=== PATIENT | female | born 1970 | race Caucasian/White ===

== ENCOUNTER → 2017-07-26 | Outpatient (CLI) | payer MEDICARE, OTHER ==
--- NOTE | 2017-07-29 17:05 | WOMENS IMAGING REPORT ---
EXAM DESCRIPTION: 3D SCREENING MAMMO BILAT COMPLETED DATE/TIME: 07/26/2017 3:34 pm REASON FOR STUDY: ROUTINE SCREENING; Z12.31 Z12.31 ENCNTR SCREEN MAMMOGRAM FOR MALIGNANT NEOPLASM O F DEE DEE COMPARISON: None. TECHNIQUE: Standard craniocaudal and mediolateral oblique views of each breast recorded using digita l acquisition and breast tomosynthesis. LIMITATIONS: None. FINDINGS: No masses, calcifications or architectural distortion. No areas of suspicion. Read with the assistance of CAD. .[facility] - R2 Cenova Version 1.3 .[facility] Imaging - R2 Cenova Version 1.3 .[facility] Imaging - R2 Cenova Version 2.4 .[facility] [place] - R2 Cenova Version 2.4 .[facility] - R2 R D Engineer Version 9.2 IMPRESSION: NORMAL MAMMOGRAM. BIRADS 1. BREAST DENSITY: b. There are scattered areas of fibroglandular density. BIRAD: 1 NEGATIVE RECOMMENDATION: ROUTINE SCREENING COMMENT: The patient has been notified of the results by letter per SA requirements. Additional no tification policies are in place for contacting patient with suspicious or incomplete findings. Quality ID #[id number]: The [employer] recommends an annual screening mammogram for women aged 40 years or over. This facility utilizes a reminder system to ensure that all patients receive reminder letters, and/or direct phone calls for appointments. This includes reminders for routine scr eening mammograms, diagnostic mammograms, or other Breast Imaging Interventions when appropriate. Th is patient will be placed in the appropriate reminder system. The [employer] ([employer]) has developed recommendations for screening MRI of the breast s in certain patient populations, to be used in conjunction with mammography. Breast MRI surveillanc e may be appropriate for women with more than 20% lifetime risk of developing breast cancer as deter mined by genetic testing, significant family history of the disease, or history of mantle radiation f or Hodgkins Disease. ACR Practice Guidelines 2008. DBT Technology DBT is a type of tomographic mammography. With conventional mammography, overlapping breast tissue ma y make lesions difficult to detect, even with good compression. DBT uses an x-ray tube that rotates a round the breast, taking images at different angles. These images are then combined to create thin sl ices of the breast that the radiologist can view as a 3D reconstruction. The [employer] unit can perform full-field digital mammograms (2D imaging); or DBT (3D imaging); or both, in a combination mode that quickly performs both the mammogram and the tomosynthesis scan while the breast is still compressed. PQRS 6045F: Fluoroscopic imaging is not utilized for breast tomosynthesis. TECHNICAL DOCUMENTATION: FINDING NUMBER: (1) ASSESSMENT: (1) JOB ID: [id number] [employer]- All Rights Reserved
== END ==
LOC: WI 14:54
PROVIDERS: ATTEND Physician Assistant
DX: Z12.31 Encounter for screening mammogram for malignant neoplasm of breast (principal)
CPT/HCPCS: 77063; 77067

== ENCOUNTER → 2018-05-30 | Outpatient (CLI) | payer MEDICARE ==
--- NOTE | 2018-05-30 14:25 | RADIOLOGY REPORT (SQ) ---
EXAM DESCRIPTION: FACIAL BONES COMPLETED DATE/TIME: 05/30/2018 2:15 pm REASON FOR STUDY: UNSPECIFIED INJURY OF FACE, INITIAL ENCOUNTER M25.561 PAIN IN RIGHT KNEE S09.93XA UNSPECIFIED INJURY OF FACE, INITIAL ENCOUNTER COMPARISON: None. NUMBER OF VIEWS: Three view. TECHNIQUE: Images of the facial bones acquired. LIMITATIONS: None. FINDINGS: ORBITS: No fracture. No foreign body. SINUSES: No mucosal thickening. No air fluid levels. FACIAL BONES: No fracture. OTHER: No other significant finding. IMPRESSION: NO FOREIGN BODY OR FRACTURE OF THE FACIAL BONES. TECHNICAL DOCUMENTATION: JOB ID: [id number] [employer]- All Rights Reserved Reading location - IP/workstation name: [email or web address]
--- NOTE | 2018-05-30 14:27 | RADIOLOGY REPORT (SQ) ---
EXAM DESCRIPTION: KNEE RIGHT 3 VIEWS COMPLETED DATE/TIME: 05/30/2018 2:15 pm REASON FOR STUDY: PAIN IN RIGHT KNEE M25.561 PAIN IN RIGHT KNEE S09.93XA UNSPECIFIED INJURY OF FAC E, INITIAL ENCOUNTER COMPARISON: None. NUMBER OF VIEWS: Three-view TECHNIQUE: AP, lateral, and sunrise patella radiographic images acquired of the right knee. LIMITATIONS: None. FINDINGS: MINERALIZATION: Normal. BONES: No acute fracture or dislocation. No worrisome bone lesions. JOINT: There some minimal decrease in the lateral compartment with associated osteophytic lipping SOFT TISSUES: No soft tissue swelling. No radio-opaque foreign body. OTHER: No other significant finding. IMPRESSION: No acute fracture dislocation. Degenerative changes at the level of the lateral compart ment as noted above. Other findings as noted above TECHNICAL DOCUMENTATION: JOB ID: [id number] [employer]- All Rights Reserved Reading location - IP/workstation name: [email or web address]
== END ==
LOC: OD 13:29
PROVIDERS: ATTEND Physician Assistant
DX: M25.561 Pain in right knee (principal); S09.93XA Unspecified injury of face, initial encounter; X58.XXXA Exposure to other specified factors, initial encounter
CPT/HCPCS: 70150

== ENCOUNTER → 2018-06-14 | Outpatient (CLI) | payer MEDICARE ==
--- NOTE | 2018-06-14 12:51 | RADIOLOGY REPORT (SQ) ---
EXAM DESCRIPTION: MRI RT LOWER JOINT WITHOUT COMPLETED DATE/TIME: 06/14/2018 12:04 pm REASON FOR STUDY: INSTABILITY AND PAIN OF RIGHT KNEE M25.561 PAIN IN RIGHT KNEE COMPARISON: Plain radiographs TECHNIQUE: Rightknee images acquired and stored on PACS. Multiplanar images include fat sensitive s equences as T1, water sensitive sequences as FST2 or STIR, cartilage sensitive sequences as FSPD, and gradient echo sequences. LIMITATIONS: None. FINDINGS: JOINT AND BURSAE: Joint effusion. No popliteal cyst. BONE CORTEX AND MARROW: No alteration of signal to suggest marrow replacement. No worrisome bone lesi ons. No occult fracture. ACL: Intact. No degeneration or ganglion cyst. PCL: Intact. MCL: Intact. No periligamentous edema or fluid. LCL: Intact. No periligamentous edema or fluid. MEDIAL MENISCUS: No tears. No abnormal signal. LATERAL MENISCUS: Complex tear. Mid and anteriorly there is a bucket-handle tear flipped centrally a nd anteriorly. MEDIAL COMPARTMENT: Cartilage preserved. No bone bruises or reactive marrow edema. No osteophytes. LATERAL COMPARTMENT: Generalize cartilaginous loss with osteophytes and reactive edema. PATELLA: No cartilaginous loss. Patellofemoral osteophytes. EXTENSOR MECHANISM: Intact. Quadriceps and patella tendons normal. SOFT TISSUES: Adjacent muscles and subcutaneous tissues normal. Normal flow void in popliteal artery and vein. OTHER: No other significant finding. IMPRESSION: Complex tear of the lateral meniscus an anterior bucket-handle flipped centrally anterio rly. Associated degenerative changes lateral compartment. Joint effusion. Patellofemoral osteophytes. TECHNICAL DOCUMENTATION: JOB ID: [id number] [employer]- All Rights Reserved Reading location - IP/workstation name: [email or web address]
== END ==
LOC: RAD 11:15
PROVIDERS: ATTEND Physician Assistant
DX: M25.561 Pain in right knee (principal)

== ENCOUNTER 2019-01-12 17:37 | Emergency (ER) | payer MEDICARE ==
--- NOTE | 2019-01-12 19:00 | ER Document Report ---
Addendum entered and electronically signed by LUIS PFEIFFER MD 01/14/19 12:19: Discharge - Discharge Clinical Impression: Suicidal ideation, Marijuana use Condition: Stable Disposition: HOME, SELF-CARE Additional Instructions: You have been evaluated by both medical and behavioral health providers while in the emergency department. You have been cleared from both acute medical and psychiatric services. You reached out to your Primary Care Provider for help who then involved [facility]. You denied current suicidal ideation. Medications have been adjusted and you should continue taking the new regimen as prescribed. You should follow up with outpatient mental health provider for ongoing medication management and therapy, but at the very least your Primary Care Provider. You have been provided a list of outpatient mental health providers and the mobile crisis number. DEPRESSION: Your evaluation reveals that you have mental depression. While symptoms may be vague, they often include disturbance of sleep, fatigue, loss of appetite, and general loss of interest in life. While depression may be a side effect of drugs, or a reaction to a major change in your life, many cases have no known cause. If depression is acute, and related to a major loss in your life, you can expect it to clear completely with time. If you have been depressed a long time, are prone to repeated bouts of depression or low mood, or have been thinking of suicide, get help. Depression can be treated with anti-depressant medication and counselling. Long-term depression will often take a few weeks to clear, even with appropriate medication. Follow-up care is important. SUICIDAL IDEATION: Suicidal ideation is a common medical term for thoughts about suicide, which may be as detailed as a formulated plan, without the suicidal act itself. Although most people who undergo suicidal ideation do not commit suicide, some go on to make suicide attempts. The range of suicidal ideation varies greatly from fleeting to detailed planning, role playing, and unsuccessful attempts. While thoughts about suicide are common, most people do not carry out serious actions to commit suicide. Based upon your evaluation and discussion with you, we do not believe you are currently at risk to act upon your thoughts of suicide. You have agreed to return to the Emergency Department, at any time, if you feel inclined to act upon your suicidal thoughts. FOLLOW-UP CARE: Your medication had been adjusted and current regimen includes: Effexor 37.6MG daily for depression/increase energy/focus and Buspar 5MG twice a day for anxiety/calming effect/depression/sleep. You should take these as prescribed. You should follow up with your Primary Care Physician at the very least, have been recommended to initiate and establish services with mental health provider and have a resource list of local agencies. Coordinated with [facility] who was involved and can assist with linkage. If you experience worsening or a significant change in your symptoms, notify the physician immedi ately, utilize mobile crisis or return to the Emergency Department at any time for re-evaluation. Prescriptions: Buspirone HCl [Buspar 5 mg Tablet] 1 tab PO BID #60 tab Venlafaxine HCl ER [Effexor Xr 37.5 mg Cap.sr] 37.5 mg PO DAILY #30 cap.sr.24h Referrals: [facility] [Outside] - Follow up as needed [facility] [Outside] - Follow up as needed RAPHAEL MAYNARD PA-C [Primary Care Provider] - Follow up as needed VANE MEJIA MD [ACTIVE STAFF] - Follow up as needed Addendum entered and electronically signed by LUIS PFEIFFER MD 01/14/19 12:14: Discharge - Discharge Clinical Impression: Suicidal ideation, Marijuana use Condition: Stable Disposition: HOME, SELF-CARE Additional Instructions: You have been evaluated by both medical and behavioral health providers while in the emergency department. You have been cleared from both acute medical and psychiatric services. You reached out to your Primary Care Provider for help who then involved [facility]. You denied current suicidal ideation. Medications have been adjusted and you should continue taking the new regimen as prescribed. You should follow up with outpatient mental health provider for ongoing medication management and therapy, but at the very least your Primary Care Provider. You have been provided a list of outpatient mental health providers and the mobile crisis number. DEPRESSION: Your evaluation reveals that you have mental depression. While symptoms may be vague, they often include disturbance of sleep, fatigue, loss of appetite, and general loss of interest in life. While depression may be a side effect of drugs, or a reaction to a major change in your life, many cases have no known cause. If depression is acute, and related to a major loss in your life, you can expect it to clear completely with time. If you have been depressed a long time, are prone to repeated bouts of depression or low mood, or have been thinking of suicide, get help. Depression can be treated with anti-depressant medication and counselling. Long-term depression will often take a few weeks to clear, even with appropriate medication. Follow-up care is important. SUICIDAL IDEATION: Suicidal ideation is a common medical term for thoughts about suicide, which may be as detailed as a formulated plan, without the suicidal act itself. Although most people who undergo suicidal ideation do not commit suicide, some go on to make suicide attempts. The range of suicidal ideation varies greatly from fleeting to detailed planning, role playing, and unsuccessful attempts. While thoughts about suicide are common, most people do not carry out serious actions to commit suicide. Based upon your evaluation and discussion with you, we do not believe you are currently at risk to act upon your thoughts of suicide. You have agreed to return to the Emergency Department, at any time, if you feel inclined to act upon your suicidal thoughts. FOLLOW-UP CARE: Your medication had been adjusted and current regimen includes: Effexor 37.6MG daily for depression/increase energy/focus and Buspar 5MG twice a day for anxiety/calming effect/depression/sleep. You should take these as prescribed. You should follow up with your Primary Care Physician at the very least, have been recommended to initiate and establish services with mental health provider and have a resource list of local agencies. Coordinated with [facility] who was involved and can assist with linkage. If you experience worsening or a significant change in your symptoms, notify the physician immediately, utilize mobile crisis or return to the Emergency Department at any time for re-evaluation. Prescriptions: Buspirone HCl [Buspar 5 mg Tablet] 1 tab PO BID #60 tab Venlafaxine HCl ER [Effexor Xr 37.5 mg Cap.sr] 37.5 mg PO DAILY #30 cap.sr.24h Referrals: [facility] [Outside] - Follow up as needed [facility] [Outside] - Follow up as needed RAPHAEL MAYNARD PA-C [Primary Care Provider] - Follow up as needed Addendum entered and electronically signed by YANET COLEMAN LPC 01/14/19 11:09: Discharge - Discharge Clinical Impression: Suicidal ideation, Marijuana use Condition: Stable Disposition: HOME, SELF-CARE Additional Instructions: You have been evaluated by both medical and behavioral health providers while in the emergency department. You have been cleared from both acute medical and psychiatric services. You reached out to your Primary Care Provider for help who then involved [facility]. You denied current suicidal ideation. Medications have been adjusted and you should continue taking the new regimen as prescribed. You should follow up with outpatient mental he alth provider for ongoing medication management and therapy, but at the very least your Primary Care Provider. You have been provided a list of outpatient mental health providers and the mobile crisis number. DEPRESSION: Your evaluation reveals that you have mental depression. While symptoms may be vague, they often include disturbance of sleep, fatigue, loss of appetite, and general loss of interest in life. While depression may be a side effect of drugs, or a reaction to a major change in your life, many cases have no known cause. If depression is acute, and related to a major loss in your life, you can expect it to clear completely with time. If you have been depressed a long time, are prone to repeated bouts of depression or low mood, or have been thinking of suicide, get help. Depression can be treated with anti-depressant medication and counselling. Long-term depression will often take a few weeks to clear, even with appropriate medication. Follow-up care is important. SUICIDAL IDEATION: Suicidal ideation is a common medical term for thoughts about suicide, which may be as detailed as a formulated plan, without the suicidal act itself. Although most people who undergo suicidal ideation do not commit suicide, some go on to make suicide attempts. The range of suicidal ideation varies greatly from fleeting to detailed planning, role playing, and unsuccessful attempts. While thoughts about suicide are common, most people do not carry out ser ious actions to commit suicide. Based upon your evaluation and discussion with you, we do not believe you are currently at risk to act upon your thoughts of suicide. You have agreed to return to the Emergency Department, at any time, if you feel inclined to act upon your suicidal thoughts. FOLLOW-UP CARE: Your medication had been adjusted and current regimen includes: Effexor 37.6MG daily for depression/increase energy/focus and Buspar 5MG twice a day for anxiety/calming effect/depression/sleep. You should take these as prescribed. You should follow up with your Primary Care Physician at the very least, have been recommended to initiate and establish services with mental health provider and have a resource list of local agencies. Coordinated with [facility] who was involved and can assist with linkage. If you experience worsening or a significant change in your symptoms, notify the physician immediately, utilize mobile crisis or return to the Emergency Department at any time for re-evaluation. Referrals: RAPHAEL MAYNARD PA-C [Primary Care Provider] - Follow up as needed [facility] [Outside] - Follow up as needed [facility] [Outside] - Follow up as needed Original Note: ED General - General Chief Complaint: Psych Problem Stated Complaint: PSYCH EVAL Time Seen by Provider: 01/12/19 18:12 Primary Care Provider: RAPHAEL MAYNARD PA-C [Primary Care Provider] - Follow up as needed Mode of Arrival: Ambulatory Information source: Patient, Emergency Med Personnel, [facility] Records Notes: 48-year-old female with bipolar disorder, depression, anxiety presents with mobile crisis who is concerned for suicidal ideation. Patient states that "last night I had a complete meltdown". She states that after an argument with her boyfriend she felt like "a ton of bricks came tumbling down on me". Patient states that she began having suicidal ideation and had to take all of the kitc hen knives and put them outside. She states about a nice was sitting in the common area of her apartment building where she lives alone. Patient has had multiple prior attempts with cutting her arms. She states that last night she had a "plan, back-up plan and a back-up plan for my back-up plan." Patient said she went to her physician's office to tell him what was occurring and he called mobile crisis. Patient has been compliant with her psychiatric medications. TRAVEL OUTSIDE OF THE [place] IN LAST 30 DAYS: No - HPI Onset: Yesterday Onset/Duration: Sudden Quality of pain: No pain Severity: None Pain Level: Denies Associated symptoms: None, Other - Weight loss. denies: Chest pain, Fever, Nausea, Vomiting, Shortness of breath Exacerbated by: Denies Relieved by: Denies Similar symptoms previously: Yes Recently seen / treated by doctor: Yes - Related Data Allergies/Adverse Reactions: aspirin Allergy (Verified 01/12/19 17:42) Sulfa (Sulfonamide Antibiotics) Allergy (Verified 01/12/19 17:42) Past Medical History - General Information source: Patient - Social History Smoking Status: Never Smoker Frequency of alcohol use: None Drug Abuse: None Lives with: Alone Family History: Reviewed & Not Pertinent Patient has suicidal ideation: No Patient has homicidal ideation: No Renal/ Medical History: Denies: Hx Peritoneal Dialysis Psychiatric Medical History: Reports: Hx Bipolar Disorder, Hx Depression - anxiety Review of Systems - Review of Systems Notes: REVIEW OF SYSTEMS: CONSTITUTIONAL : Denies fever, chills, or sweats. Denies recent illness. Denies weight loss, recent hospitalizations. EENT: Denies visual changes, eye pain. Denies sore throat, oral lesions, dif ficulty swallowing. CARDIOVASCULAR: Denies chest pain. Denies palpitations. Denies lower extremity edema. RESPIRATORY: Denies cough. Denies shortness of breath, wheezing. GASTROINTESTINAL: Denies abdominal pain or distention. Denies nausea, vomiting, or diarrhea. Denies blood in vomitus, stools, or per rectum. Denies black, tarry stools. Denies constipation. GENITOURINARY: Denies difficulty urinating, painful urination, frequency, blood in urine, or vaginal discharge. MUSCULOSKELETAL: Denies back or neck pain or stiffness. Denies joint pain or swelling. SKIN: Denies rash, lesions or sores. HEMATOLOGIC : Denies easy bruising or bleeding. LYMPHATIC: Denies swollen glands. NEUROLOGICAL: Denies confusion or altered mental status. Denies loss of consciousness. Denies dizziness or lightheadedness. Denies headache. Denies weakness or paralysis. Denies problems difficulty with ambulation, slurred speech. Denies sensory loss, numbness, or tingling. Denies seizures. PSYCHIATRIC: +anxiety or stress. +depression, suicidal ideation, denies homicidal ideation. Denies visual or auditory hallucinations. Physical Exam - Vital signs Vitals: Temp Pulse Resp BP Pulse Ox 98.2 F 65 16 140/59 H 96 01/12/19 17:55 01/12/19 17:55 01/12/19 17:55 01/12/19 17:55 01/12/19 17:55 - Notes Notes: PHYSICAL EXAMINATION: GENERAL: Well-appearing, well-nourished and in no acute distress. HEAD: Atraumatic, normocephalic. EYES: Pupils equal round and reactive to light, extraocular movements intact, conjunctiva are normal. ENT: Nares patent, oropharynx clear without exudates. Moist mucous membranes. NECK: Normal range of motion, supple without lymphadenopathy LUNGS: Breath sounds clear to auscultation bilaterally and equal. No wheezes rales or rhonchi. HEART: Regular rate and rhythm without murmurs ABDOMEN: Soft, nontender, nondistended abdomen. No guarding, no rebound. No masses appreciated. Female : deferred Musculoskeletal: Normal range of motion, no pitting or edema. No cyanosis. NEUROLOGICAL: Cranial nerves grossly intact. Normal speech, normal gait. Normal sensory, motor exams PSYCH: Normal mood, normal affect. +anxiety or stress. +depression, suicidal ideation, denies homicidal ideation. Denies visual or auditory hallucinations. SKIN: Warm, Dry, normal turgor, no rashes or lesions noted. Course - Re-evaluation Re-evalutation: Temp Pulse Resp BP Pulse Ox 98.2 F 65 16 140/59 H 96 01/12/19 17:55 01/12/19 17:55 01/12/19 17:55 01/12/19 17:55 01/12/19 17:55 Laboratory 01/12/19 01/12/19 01/12/19 20:12 20:12 20:12 WBC 9.9 RBC 4.81 Hgb 13.6 Hct 41.3 MCV 86 MCH 28.3 MCHC 32.9 RDW 14.3 H Plt Count 331 Seg Neutrophils % 54.9 Lymphocytes % 33.0 Monocytes % 9.4 Eosinophils % 2.1 Basophils % 0.6 Absolute Neutrophils 5.4 Absolute Lymphocytes 3.3 Absolute Monocytes 0.9 Absolute Eosinophils 0.2 Absolute Basophils 0.1 Sodium 137.9 Potassium 3.9 Chloride 107 Carbon Dioxide 20 L Anion Gap 11 BUN 16 Creatinine 0.51 L Est GFR ( Amer) > 60 Est GFR (Non-Af Amer) > 60 Glucose 76 Calcium 8.8 Total Bilirubin 0.4 Direct Bilirubin 0.1 Neonat Total Bilirubin Not Reportable Neonat Direct Bilirubin Not Reportable Neonat Indirect Bili Not Reportable AST 22 ALT 24 Alkaline Phosphatase 106 Total Protein 6.5 Albumin 3.5 Serum HCG, Qual NEGATIVE Urine Color Urine Appearance Urine pH Ur Specific [place] Urine Protein Urine Glucose (UA) Urine Ketones Urine Blood Urine Nitrite Urine Bilirubin Urine Urobilinogen Ur Leukocyte Esterase Urine WBC (Auto) Urine RBC (Auto) Squamous Epi Cells Auto Urine Mucus (Auto) Urine Ascorbic Acid Salicylates < 1.0 L Urine Opiates Screen Urine Methadone Screen Acetaminophen < 10 L Ur Barbiturates Screen Ur Phencyclidine Scrn Ur Amphetamines Screen U Benzodiazepines Scrn Urine Cocaine Screen U Marijuana (THC) Screen Serum Alcohol < 10 01/13/19 01/13/19 00:21 00:21 WBC RBC Hgb Hct MCV MCH MCHC RDW Plt Count Seg Neutrophils % Lymphocytes % Monocytes % Eosinophils % Basophils % Absolute Neutrophils Absolute Lymphocytes Absolute Monocytes Absolute Eosinophils Absolute Basophils Sodium Potassium Chloride Carbon Dioxide Anion Gap BUN Creatinine Est GFR ( Amer) Est GFR (Non-Af Amer) Glucose Calcium Total Bilirubin Direct Bilirubin Neonat Total Bilirubin Neonat Direct Bilirubin Neonat Indirect Bili AST ALT Alkaline Phosphatase Total Protein Albumin Serum HCG, Qual Urine Color STRAW Urine Appearance CLEAR Urine pH 6.0 Ur Specific [place] 1.008 Urine Protein NEGATIVE Urine Glucose (UA) NEGATIVE Urine Ketones NEGATIVE Urine Blood NEGATIVE Urine Nitrite NEGATIVE Urine Bilirubin NEGATIVE Urine Urobilinogen NEGATIVE Ur Leukocyte Esterase NEGATIVE Urine WBC (Auto) 1 Urine RBC (Auto) 0 Squamous Epi Cells Auto 3 Urine Mucus (Auto) RARE Urine Ascorbic Acid NEGATIVE Salicylates Urine Opiates Screen NEGATIVE Urine Methadone Screen NEGATIVE Acetaminophen Ur Barbiturates Screen NEGATIVE Ur Phencyclidine Scrn NEGATIVE Ur Amphetamines Screen NEGATIVE U Benzodiazepines Scrn NEGATIVE Urine Cocaine Screen NEGATIVE U Marijuana (THC) Screen UNCONFIRMED POSITIVE Serum Alcohol 01/12/19 18:59 48-year-old female with bipolar disorder, depression, anxiety presents with mobile crisis who is concerned for suicidal ideation. Patient has had multiple previous attempts. She states last night she had a plan but today does not. Patient has been known to slit her wrists previously. Vital signs reviewed and within normal limits. Patient does not appear toxic or dehydrated. She is cooperative. Patient presented to the emergency department voluntarily. IVC physician initiated. 01/13/19 02:51 Only significant finding is a urinalysis that is positive for marijuana. Patient is medically cleared for behavioral health evaluation. - Vital Signs Vital signs: Temp Pulse Resp BP Pulse Ox 98.3 F 62 15 117/54 L 97 01/12/19 22:11 01/12/19 22:11 01/12/19 22:11 01/12/19 22:11 01/12/19 22:11 - Laboratory Result Diagrams: 01/12/19 20:12 01/12/19 20:12 Laboratory results interpreted by me: 01/12/19 01/12/19 20:12 20:12 RDW 14.3 H Carbon Dioxide 20 L Creatinine 0.51 L Salicylates < 1.0 L Acetaminophen < 10 L - EKG Interpretation by Me EKG shows normal: Sinus rhythm Rate: Normal Rhythm: NSR When compared to previous EKG there are: No significant change Discharge - Discharge Clinical Impression: Suicidal ideation, Marijuana use Condition: Good Disposition: PSYCH HOSP/UNIT Referrals: RAPHAEL MAYNARD PA-C [Primary Care Provider] - Follow up as needed
[2019-01-12] MEDS ORDERED: GABAPENTIN 300 MG CAPSULE PO ONE (19:31)
[2019-01-12 20:36] LABS: ABSOLUTE BASOPHILS # (AUTO) 0.1 10^3/uL (0.0-0.2); ABSOLUTE EOSINOPHILS # (AUTO) 0.2 10^3/uL (0.0-0.6); ABSOLUTE LYMPHOCYTES (AUTO) 3.3 10^3/uL (0.5-4.7); ABSOLUTE MONOCYTES (AUTO) 0.9 10^3/uL (0.1-1.4); ABSOLUTE NEUT (AUTO) 5.4 10^3/uL (1.7-8.2); BASOPHILS % (AUTO) 0.6 % (0-2); EOSINOPHILS % (AUTO) 2.1 % (0-6); HEMATOCRIT 41.3 % (36.0-47.0); HEMOGLOBIN 13.6 g/dL (12.0-15.5); MEAN CORPUSCULAR HEMOGLOBIN 28.3 pg (27.0-33.4); MEAN CORPUSCULAR HGB CONC 32.9 g/dL (32.0-36.0); MEAN CORPUSCULAR VOLUME 86 fl (80-97); MONOCYTES % (AUTO) 9.4 % (3-13); PLATELET COUNT 331 10^3/uL (150-450); RED BLOOD COUNT 4.81 10^6/uL (3.72-5.28); RED CELL DISTRIBUTION WIDTH 14.3 % (11.5-14.0); SEGMENTED NEUTROPHILS % (AUTO) 54.9 % (42-78); TOTAL CELLS COUNTED % (AUTO) 100 %; WHITE BLOOD COUNT 9.9 10^3/uL (4.0-10.5)
[2019-01-12 20:56] LABS: ACETAMINOPHEN < 10 ug/mL (10-30); ALANINE AMINOTRANSFERASE 24 U/L (9-52); ALBUMIN 3.5 g/dL (3.5-5.0); ALCOHOL < 10 mg/dL (NONE DETECTED); ALKALINE PHOSPHATASE 106 U/L (38-126); ANION GAP 11 (5-19); ASPARTATE AMINO TRANSFERASE 22 U/L (14-36); BILIRUBIN,DIRECT 0.1 mg/dL (0.0-0.4); BILIRUBIN,TOTAL 0.4 mg/dL (0.2-1.3); BLOOD UREA NITROGEN 16 mg/dL (7-20); CALCIUM 8.8 mg/dL (8.4-10.2); CARBON DIOXIDE 20 mmol/L (22-30); CHLORIDE 107 mmol/L (98-107); GLUCOSE 76 mg/dL (75-110); POTASSIUM 3.9 mmol/L (3.6-5.0); SALICYLATE < 1.0 mg/dL (2.0-20.0); TOTAL PROTEIN 6.5 g/dL (6.3-8.2)
--- NOTE | 2019-01-12 21:16 | EKG REPORT ---
SEVERITY:- BORDERLINE ECG - SINUS RHYTHM BORDERLINE T ABNORMALITIES, INFERIOR LEADS : Confirmed by: Corby Reyez 12-Jan-2019 21:15:30
[2019-01-13 00:59] LABS: APPEARANCE,URINE CLEAR; BILIRUBIN,URINE NEGATIVE (NEGATIVE); COLOR,URINE STRAW; GLUCOSE, URINE NEGATIVE (NEGATIVE); KETONES,URINE NEGATIVE (NEGATIVE); LEUKOCYTE ESTERASE,URINE NEGATIVE (NEGATIVE); NITRITE,URINE NEGATIVE (NEGATIVE); PROTEIN,URINE NEGATIVE (NEGATIVE); URINE SPECIFIC GRAVITY 1.008; UROBILINOGEN,URINE NEGATIVE mg/dL (<2.0)
[2019-01-13 01:18] LABS: URINE AMPHETAMINES SCREEN NEGATIVE; URINE BARBITURATES SCREEN NEGATIVE; URINE BENZODIAZEPINES SCREEN NEGATIVE; URINE COCAINE SCREEN NEGATIVE; URINE MARIJUANA (THC) SCREEN UNCONFIRMED POSITIVE; URINE METHADONE SCREEN NEGATIVE; URINE PHENCYCLIDINE SCREEN NEGATIVE
[2019-01-13] MEDS ORDERED: ACETAMINOPHEN 325 MG TABLET PO ONE ×2 (06:27→15:55)
[2019-01-13] MEDS ORDERED: HYDROXYZINE HCL 10 MG TABLET PO PRN (15:54)
[2019-01-13] MEDS: VENLAFAXINE HCL 37.5 MG CAP.SR.24H PO SCH (16:20)
--- NOTE | 2019-01-13 17:10 | RADIOLOGY REPORT (SQ) ---
EXAM DESCRIPTION: KNEE RIGHT 4 VIEWS COMPLETED DATE/TIME: 01/13/2019 5:02 pm REASON FOR STUDY: Pain with flexion and extension COMPARISON: 05/30/2018 NUMBER OF VIEWS: Four views. TECHNIQUE: AP, lateral, and both oblique radiographic images acquired of the right knee. LIMITATIONS: None. FINDINGS: MINERALIZATION: Normal. BONES: No acute fracture or dislocation. No worrisome bone lesions. JOINT: There is joint space narrowing in all compartments consistent with osteoarthritis. SOFT TISSUES: No soft tissue swelling. No radio-opaque foreign body. OTHER: No other significant finding. IMPRESSION: Joint space narrowing in all compartments consistent with osteoarthritis. No acute frac ture or dislocation. TECHNICAL DOCUMENTATION: JOB ID: [id number] [employer]- All Rights Reserved Reading location - IP/workstation name: [email or web address]
[2019-01-13] MEDS: BACLOFEN 10 MG TABLET PO SCH (17:11)
[2019-01-13] MEDS: GABAPENTIN 300 MG CAPSULE PO SCH (17:11)
[2019-01-13] MEDS: BUSPIRONE HCL 10 MG TABLET PO SCH (17:11)
[2019-01-13] MEDS ORDERED: LEVOTHYROXINE SODIUM 0.025 MG TABLET PO ONE (18:00)
[2019-01-13] MEDS ORDERED: LEVOTHYROXINE SODIUM 0.1 MG TABLET PO ONE (18:00)
--- NOTE | 2019-01-13 19:37 | ER Document Report ---
Entered by KEON CANNON SCRIBE 01/13/19 1557 Acting as scribe for:OSBALDO LAGUERRE DO Doctor's Note Notes: 01/13/19 15:56 Medication recommendations from behavioral health include discontinuing Cymbalta and starting Effexor and BuSpar. These have been ordered. Patient additionally complains of right knee pain, she does have some ligamentous laxity with medial stress, x-ray will be performed. Pain will be treated with acetaminophen. Home medications have been ordered aside from Cymbalta. 01/13/19 19:36 Knee x-ray shows osteoarthritis but no avulsion fracture or malalignment. Pain will be treated with acetaminophen and offered knee immobilizer. Patient left her brace at home. Patient still complains of being quite sad, behavioral health recommendations to need observation while starting Effexor and BuSpar. Patient will remain an involuntary commitment. Home medications have been placed in the computer as well. I personally performed the services described in the documentation, reviewed and edited the documentation which was dictated to the scribe in my presence, and it accurately records my words and actions.
[2019-01-13] MEDS ORDERED: IBUPROFEN 600 MG TABLET PO ONE (21:27)
[2019-01-14] MEDS: GABAPENTIN 300 MG CAPSULE PO SCH ×3 (00:33→11:03)
[2019-01-14] MEDS ORDERED: ACETAMINOPHEN 325 MG TABLET PO ONE (03:40)
[2019-01-14] MEDS ORDERED: LEVOTHYROXINE SODIUM 0.025 MG TABLET PO SCH (06:00)
[2019-01-14] MEDS ORDERED: LEVOTHYROXINE SODIUM 0.1 MG TABLET PO SCH (06:00)
[2019-01-14] MEDS ORDERED: (PENDING PHARMACY ID) (Levothyroxine Sodium [Synthroid] 125 MCG) PO SCH (06:00)
[2019-01-14] MEDS: BUSPIRONE HCL 10 MG TABLET PO SCH (09:29)
[2019-01-14] MEDS: VENLAFAXINE HCL 37.5 MG CAP.SR.24H PO SCH (09:29)
[2019-01-14] MEDS: BACLOFEN 10 MG TABLET PO SCH (09:29)
--- NOTE | 2019-01-14 09:33 | ER Document Report ---
Doctor's Note Notes: 01/14/19 09:32 48-year-old female with past medical history of anxiety, cutting, and suicide attempts who presents after an argument with her boyfriend with a suicidal plan. Patient had a history of slitting her wrist. Patient went to her primary doctor who sent her here. Vitals are stable. Labs as recorded with a positive marijuana screen. 01/14/19 12:07 Psychology/behavioral health team is seen and assessed the patient. They do not believe that the patient feels IVC criteria at this time. They do not believe t hat the patient is a danger to herself or others. Mobile crisis has been activated and will assist the patient. They have provided 1 month medications as well as strict return precautions and follow-up instructions. They have called the patient's daughter who lives down the street who is comfortable with the patient being discharged and will watch and care for the patient. Patient denies any suicidal ideations at this time. Given the recommendation of our expert psychology team, I do not believe we have criteria to hold the patient at this time. Patient will be discharged with the medication refill and strict return precautions.
[2019-01-14 12:30] VITALS: BP 140/54
== END 2019-01-14 12:30 | disposition home or self-care (01) ==
LOC: ER 17:37
DX: R45.851 Suicidal ideations (principal); F31.9 Bipolar disorder, unspecified; F41.9 Anxiety disorder, unspecified; Z79.899 Other long term (current) drug therapy; Z91.5 Personal history of self-harm; M17.11 Unilateral primary osteoarthritis, right knee; M23.8X1 Other internal derangements of right knee; Z88.8 Allergy status to other drugs, medicaments and biological substances; Z88.2 Allergy status to sulfonamides
CPT/HCPCS: 99284; 36415; 82962; 80307 ×4; 84703; 85025; 80053; 81001; A9270 ×15; 93005; 93010; J3490

== ENCOUNTER 2019-10-10 22:08 | Emergency (ER) | payer MEDICARE ==
[2019-10-10 22:14] VITALS: BP 114/75
--- NOTE | 2019-10-10 22:24 | ER Document Report ---
ED General - General Chief Complaint: Finger Injury Stated Complaint: RIGHT FINGER LACERATION Primary Care Provider: RAPHAEL MAYNARD PA-C [Primary Care Provider] - Follow up as needed Notes: Patient is a 49-year-old white female with a history of muscular dystrophy and "thyroid issues" who presents to the emergency department the chief complaint of laceration of the right thumb that occurred about 1:30 PM today. She states she was cleaning a knife with soap and water, having soap all over her hands and all of the knife when she accidentally sliced the side of the thumb. She states that she held pressure against it and wrapped a Band-Aid around it. She states it was initially bleeding through that Band-Aid. She was concerned because every time she would change the dressing it would continue to ooze blood. She states that she put on a new Band-Aid just prior to arrival here and decided to come for evaluation given the ongoing bleeding. She denies any numbness tingling or weakness. States that her tetanus is up-to-date. TRAVEL OUTSIDE OF THE [place] IN LAST 30 DAYS: No - Related Data Allergies/Adverse Reactions: aspirin Allergy (Verified 01/12/19 17:42) Sulfa (Sulfonamide Antibiotics) Allergy (Verified 01/12/19 17:42) Past Medical History - Social History Smoking Status: Unknown if Ever Smoked Family History: Reviewed & Not Pertinent Renal/ Medical History: Denies: Hx Peritoneal Dialysis Psychiatric Medical History: Reports: Hx Bipolar Disorder, Hx Depression - anxiety Review of Systems - Review of Systems Skin: Other - Laceration -: Yes All other systems reviewed and negative Physical Exam - Vital signs Vitals: Temp Pulse Resp BP Pulse Ox 97.7 F 73 13 114/75 99 10/10/19 22:13 10/10/19 22:13 10/10/19 22:13 10/10/19 22:13 10/10/19 22:13 - General General appearance: Appears well, Alert In distress: None - Respiratory Respiratory status: No respiratory distress Chest status: Nontender Breath sounds: Normal Chest palpation: Normal - Cardiovascular Rhythm: Regular Heart sounds: Normal auscultation - Extremities Hand: Other - Full range of motion of the right thumb with and without resistance. Good capillary refill distally. Small laceration approximately 0.5 cm to the ulnar edge of the right thumb laterally between the interphalangeal joint and MCP. Wound edges are well approximated and do not separate under tension. Hemostasis is maintained. There is no foreign body visualized. The wound is very superficial. - Neurological Neuro grossly intact: Yes Cognition: Normal - Psychological Associated symptoms: Normal affect, Normal mood - Skin Skin Temperature: Warm Skin Moisture: Dry Skin Color: Other - Normal except laceration described above Course - Re-evaluation Re-evalutation: 10/10/19 22:22 Wound does not require any formal repair measures. It was copiously irrigated, cleansed and dressed with Xeroform, plain gauze and a finger splint. Patient's tetanus was previously updated. We discussed wound care measures and the importance of outpatient follow-up for wound recheck in 2 to 3 days. Advised that she return here or any ER immediately with any new, persistent or worsening symptoms. She verbalized understood and agreed. - Vital Signs Vital signs: Temp Pulse Resp BP Pulse Ox 97.7 F 73 13 114/75 99 10/10/19 22:13 10/10/19 22:13 10/10/19 22:13 10/10/19 22:13 10/10/19 22:13 Discharge - Discharge Clinical Impression: Finger laceration Qualifiers: Encounter type: initial encounter Finger: thumb Damage to nail status: without damage Foreign body presence: without foreign body Laterality: right Qualified Code(s): S61.011A - Laceration without foreign body of right thumb without damage to nail, initial encounter Condition: Stable Disposition: HOME, SELF-CARE Instructions: Laceration Care ([facility]) Additional Instructions: Follow-up with your regular doctor in 2 to 3 days for reevaluation. Return here or any ER immediately with any new, persistent or worsening symptoms. Referrals: RAPHAEL MAYNARD PA-C [Primary Care Provider] - Follow up as needed
== END 2019-10-10 22:29 | disposition home or self-care (01) ==
LOC: ER 22:08
DX: S61.011A Laceration without foreign body of right thumb without damage to nail, initial encounter (principal); W26.0XXA Contact with knife, initial encounter; Y93.G1 Activity, food preparation and clean up; Z88.8 Allergy status to other drugs, medicaments and biological substances; Z88.2 Allergy status to sulfonamides
CPT/HCPCS: 99282

== ENCOUNTER 2020-05-02 07:30 | Emergency (ER) | payer MEDICARE ==
[2020-05-02] MEDS ORDERED: ACETAMINOPHEN 325 MG TABLET PO ONE (08:04)
--- NOTE | 2020-05-02 08:56 | RADIOLOGY REPORT (SQ) ---
EXAM DESCRIPTION: RIBS LEFT W/PA CHEST IMAGES COMPLETED DATE/TIME: 05/02/2020 7:22 am REASON FOR STUDY: rib pain COMPARISON: None. TECHNIQUE: Frontal view of the chest and additional views of the left ribs acquired. NUMBER OF VIEWS: Four views LIMITATIONS: None. FINDINGS: FRONTAL CXR: No pneumothorax. No pleural effusion. No atelectasis or infiltrates. RIBS: No displaced rib fractures. No lytic or blastic bony lesions. OTHER: No other significant finding. IMPRESSION: NO PNEUMOTHORAX. NO DISPLACED RIB FRACTURES. COMMENT: SITE OF TRAUMA/COMPLAINT MARKED/STAMP COMPLETED: NA TECHNICAL DOCUMENTATION: JOB ID: [id number] 2010 [employer]- All Rights Reserved Reading location - IP/workstation name: [email or web address]
--- NOTE | 2020-05-02 10:58 | ER Document Report ---
Entered by JERMAINE HOU SCRIBE 05/02/20 1015 Acting as scribe for:VICTOR M MONTANO MD ED General - General Chief Complaint: Rib Pain Stated Complaint: LEFT RIB PAIN Primary Care Provider: RAPHAEL MAYNARD PA-C [Primary Care Provider] - Follow up as needed Mode of Arrival: Ambulatory Information source: Patient Notes: This 49 year old female patient presents to the ED today for evaluation of left rib pain status post a near-fall that occurred x2 days ago. Patient states that her caught her to prevent her from falling and that she it has been hard to breath ever since. She states that she believed she pulled a muscle and that she has been taking Tylenol for the pain. Denies any other complaints. TRAVEL OUTSIDE OF THE [place] IN LAST 30 DAYS: No - Related Data Allergies/Adverse Reactions: aspirin Allergy (Verified 01/12/19 17:42) Sulfa (Sulfonamide Antibiotics) Allergy (Verified 01/12/19 17:42) Past Medical History - General Information source: Patient, [facility] Records - Social History Smoking Status: Never Smoker Cigarette use (# per day): No Chew tobacco use (# tins/day): No Smoking Education Provided: No Frequency of alcohol use: None Drug Abuse: Marijuana Lives with: Spouse/Significant other Family History: Reviewed & Not Pertinent Patient has suicidal ideation: No Patient has homicidal ideation: No Psychiatric Medical History: Reports: Hx Anxiety, Hx Bipolar Disorder, Hx Depression Review of Systems - Review of Systems Constitutional: No symptoms reported EENT: No symptoms reported Cardiovascular: No symptoms reported Respiratory: See HPI, Hurts to breathe Gastrointestinal: No symptoms reported Genitourinary: No symptoms reported Female Genitourinary: No symptoms reported Musculoskeletal: See HPI, Other - Rib pain Skin: No symptoms reported Hematologic/Lymphatic: No symptoms reported Neurological/Psychological: No symptoms reported -: Yes All other systems reviewed and negative Physical Exam - Vital signs Vitals: Temp Pulse Resp BP Pulse Ox 98.5 F 71 20 117/80 100 05/02/20 07:36 05/02/20 07:36 05/02/20 07:36 05/02/20 07:36 05/02/20 07:36 Interpretation: Normal - General General appearance: Alert In distress: None - HEENT Head: Normocephalic, Atraumatic Eyes: Normal Pupils: PERRL - Respiratory Respiratory status: No respiratory distress Chest status: Nontender Breath sounds: Normal Chest palpation: Normal. No: Tender, Ecchymosis - Cardiovascular Rhythm: Regular Heart sounds: Normal auscultation Murmur: No Friction rub: No Gallop: None auscultated - Abdominal Inspection: Normal Distension: No distension Bowel sounds: Normal Tenderness: Nontender - Abdomen soft Organomegaly: No organomegaly - Back Back: Normal, Nontender - Extremities General upper extremity: Normal inspection General lower extremity: Normal inspection. No: Edema - Neurological Neuro grossly intact: Yes Orientation: AAOx4 P[place] Coma Scale Eye Opening: Spontaneous [place] Coma Scale Verbal: Oriented Abdoulaye Coma Scale Motor: Obeys Commands P[place] Coma Scale Total: 15 - Psychological Associated symptoms: Normal affect, Normal mood - Skin Skin Temperature: Warm Skin Moisture: Dry Skin Color: Normal Course - Re-evaluation Re-evalutation: 05/02/20 10:42 Patient resting not showing any signs of distress. Patient does have palpable tenderness over left lower rib margin. No abdominal pain noted. Patient lungs are clear. - Vital Signs Vital signs: Temp Pulse Resp BP Pulse Ox 98.5 F 71 20 117/80 100 05/02/20 07:36 05/02/20 07:36 05/02/20 07:36 05/02/20 07:36 05/02/20 07:36 05/02/20 10:42 Vital signs stable pulse ox 100% on room air. - Diagnostic Test Radiology reviewed: Image reviewed, Reports reviewed Radiology results interpreted by me: 05/02/20 10:43 Ribs w/Chest X-Ray 05/02/20 00:00 IMPRESSION: NO PNEUMOTHORAX. NO DISPLACED RIB FRACTURES. No pneumothorax no displaced rib fractures no acute process chest x-ray with left rib detail. Discharge - Discharge Clinical Impression: Contusion of rib on left side Condition: Stable Disposition: HOME, SELF-CARE Additional Instructions: Chest Wall Pain Your chest pain has been diagnosed as coming from the chest wall. This is often caused by straining the muscles or joints in the chest during physical activity, direct trauma, coughing, or vigorous vomiting. Persons with arthritis are especially prone to this type of pain, due to inflammation of the cartilage joints near the breast bone. Occasionally, no cause can be found. Rest from strenuous physical activity. This kind of chest pain is usually made worse by movement of the chest. Depending on the symptoms, we may prescribe medicine for pain, muscle relaxation, and antiinflammatory effects. If the pain is new, and seems to be due to muscle strain, cold packs can help. Otherwise, apply gentle warmth to the painful area for 15 minutes every hour or two. You should contact the doctor immediately if things change. Further evaluation is needed if you develop a fever or cough, if the nature of the pain changes, or if you become short of breath. Prescriptions: Cyclobenzaprine HCl 1 - 2 tab PO BID PRN #40 tablet PRN Reason: neck muscle spasm/pain Cyclobenzaprine HCl 1 - 2 tab PO BID PRN #20 tablet PRN Reason: neck muscle spasm/pain Referrals: RAPHAEL MAYNARD PA-C [Primary Care Provider] - Follow up as needed I personally performed the services described in the documentation, reviewed and edited the documentation which was dictated to the scribe in my presence, and it accurately records my words and actions.
[2020-05-02 11:41] VITALS: BP 118/49
== END 2020-05-02 11:00 | disposition home or self-care (01) ==
LOC: ER 07:30
DX: S20.20XA Contusion of thorax, unspecified, initial encounter (principal); R07.81 Pleurodynia; X50.0XXA Overexertion from strenuous movement or load, initial encounter; F12.10 Cannabis abuse, uncomplicated; Z88.8 Allergy status to other drugs, medicaments and biological substances; Z88.2 Allergy status to sulfonamides
CPT/HCPCS: 99283; 71101; A9270

== ENCOUNTER → 2020-05-13 | Outpatient (CLI) | payer MEDICARE ==
--- NOTE | 2020-05-13 11:49 | WOMENS IMAGING REPORT ---
EXAM DESCRIPTION: 3D SCREENING MAMMO BILAT IMAGES COMPLETED DATE/TIME: 05/13/2020 10:13 am REASON FOR STUDY: ROUTINE BILATERAL SCREENING;Z12.31 Z12.31 ENCNTR SCREEN MAMMOGRAM FOR MALIGNANT N EOPLASM OF DEE DEE G60.0 HEREDITARY MOTOR AND SENSORY NEUROPATHY COMPARISON: 2017. EXAM PARAMETERS: Views: Standard craniocaudal and mediolateral oblique views of each breast recorded using digital acquisition and breast tomosynthesis. Read with the assistance of CAD. .[facility] [address] [employer] Version 9.2 LIMITATIONS: None. FINDINGS: No suspicious masses, suspicious calcifications or architectural distortion. No areas of c oncern. IMPRESSION: NEGATIVE MAMMOGRAM. BIRADS 1. BREAST DENSITY: b. There are scattered areas of fibroglandular density. BIRAD: ASSESSMENT: 1 NEGATIVE RECOMMENDATION: ROUTINE SCREENING COMMENT: The patient has been notified of the results by letter per MQSA requirements. Additional no tification policies are in place for contacting patient with suspicious or incomplete findings. Quality ID #[id number]: The [employer] recommends an annual screening mammogram for women aged 40 years or over. This facility utilizes a reminder system to ensure that all patients receive reminder letters, and/or direct phone calls for appointments. This includes reminders for routine scr eening mammograms, diagnostic mammograms, or other Breast Imaging Interventions when appropriate. Th is patient will be placed in the appropriate reminder system. TECHNICAL DOCUMENTATION: FINDING NUMBER: (1) ASSESSMENT: (1) JOB ID: [id number] 2010 [employer]- All Rights Reserved Reading location - IP/workstation name: [email or web address]
== END ==
LOC: WI 11:41
PROVIDERS: ATTEND Physician Assistant
DX: Z12.31 Encounter for screening mammogram for malignant neoplasm of breast (principal); G60.0 Hereditary motor and sensory neuropathy
CPT/HCPCS: 77063; 77067